=== PATIENT | female | born 1945 | race African-American/Black ===

== ENCOUNTER 2022-07-14 11:29 | Emergency (ER) | payer OTHER ==
[~2022-07-14] VITALS: Ht 157.5 cm; Wt 65.0 kg
[2022-07-14] MEDS ORDERED: GABA-290 MT (12:59)
[2022-07-14] MEDS ORDERED: GABAPENTIN 300MG CAPSULE PO SCH (13:00)
[2022-07-14 13:51] VITALS: BP 125/86
== END 2022-07-14 13:53 | disposition home or self-care (01) ==
LOC: ER 11:29
DX: Z76.0 Encounter for issue of repeat prescription (principal); Z98.890 Other specified postprocedural states
CPT/HCPCS: 99283

== ENCOUNTER 2025-03-06 00:59 | Emergency (ER) | payer OTHER ==
[~2025-03-06] VITALS: Ht 157.5 cm; Wt 58.0 kg
[~2025-03-06 00:59] MED LIST: GABA-290 MT
[2025-03-06 01:07] VITALS: O2SAT 100
[2025-03-06 01:27] VITALS: BP 120/71; PULSE 86; RESP 18; TEMP 36.9; O2SAT 98
[2025-03-06 03:09] VITALS: TEMP 98.5
[2025-03-06] MEDS: ACETAMINOPHEN 500MG TABLET PO ONE (03:09)
[2025-03-06] MEDS ORDERED: NAPR-1176 MT (04:03)
== END 2025-03-06 04:12 | disposition home or self-care (01) ==
LOC: ER 00:59
DX: S09.8XXA Other specified injuries of head, initial encounter (principal); I67.82 Cerebral ischemia; Z79.1 Long term (current) use of non-steroidal anti-inflammatories (NSAID); W01.0XXA Fall on same level from slipping, tripping and stumbling without subsequent striking against object, initial encounter; Y93.89 Activity, other specified; Y92.89 Other specified places as the place of occurrence of the external cause; Y99.8 Other external cause status
CPT/HCPCS: 99284